=== PATIENT | female | born 1995 | race Caucasian/White ===

== ENCOUNTER 2018-07-23 16:34 | Emergency (ER) | payer OTHER ==
[2018-07-23] MEDS ORDERED: birth control PO (16:48)
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
[2018-07-23] MEDS ORDERED: DIPHTH/TETANUS/ACEL. PERTUSSIS IM ONLY ONE (17:00)
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
[2018-07-23 19:43] VITALS: BP 138/74
[2018-07-23] MEDS ORDERED: ACET/HYDROC 5/325MG TH ER ONLY 2 TAB/BOTTLE PO ONE (20:05)
[2018-07-23] MEDS ORDERED: APAP/HYDROCODONE 325/5 TAB PO ONE (20:05)
[2018-07-23] MEDS ORDERED: ONDANSETRON 4 MG ODT TABDP SL ONE (20:05)
[2018-07-23] MEDS ORDERED: ONDANSETRON 4 MG ODT TH SL ONE (20:05)
== END 2018-07-23 20:12 | disposition home or self-care (01) ==
LOC: ER 16:55
DX: S01.81XA Laceration without foreign body of other part of head, initial encounter (principal); S09.90XA Unspecified injury of head, initial encounter; V86.65XA Passenger of 3- or 4- wheeled all-terrain vehicle (ATV) injured in nontraffic accident, initial encounter
CPT/HCPCS: 12052; 70450; 72125; 90471; 90715; 99284; S0119